=== PATIENT | female | born 1965 | race Caucasian/White ===

== ENCOUNTER 2016-12-02 12:30 | Emergency (ER) | payer SELFPAY ==
[2016-12-02 12:36] VITALS: BP 144/83
--- NOTE | 2016-12-02 12:51 | EDM.PDOC ---
ED HPI GENERAL MEDICAL PROBLEM - General Chief Complaint: Chest Pain Stated Complaint: CHEST PAIN, SOB Time Seen by Provider: 12/02/16 12:35 Source of Information: Reports: Patient History Limitations: Reports: No Limitations - History of Present Illness INITIAL COMMENTS - FREE TEXT/NARRATIVE: 51-year-old female presents for evaluation treatment of chest pain. Patient reports that the chest pain began around 10 PM last night. She describes as a bandlike sensation across her lower chest. She rates it as a 10 out of 10. She states the pain goes into her back. She reports associated symptoms of shortness of breath, diaphoresis and nausea. Reports she has chronic shortness of breath but feels this is worse than normal. She denies any vomiting, lightheadedness, dizziness, syncope, fevers or cough. No treatments prior to arrival in the ER. Patient's has no cardiac history. She denies any previous MIs, arrhythmias or valve problems. She smokes half pack a day and has done so for "forever ". Denies any hypertension, diabetes or high cholesterol. Patient reports that she was recently ill with a sinus infection like symptoms. She reports facial pain. Denies a cough or fever. Patient also reports that she has a history of diverticulitis. She is reporting abdominal pain and constipation. No diarrhea, no melena, or hematochezia. Previous and surgeries include a hysterectomy with what sounds like takedown of the adhesions. She also had her tubes tied. Reports her hysterectomy was in 2001. Location: Reports: Chest Middle Chest Pain Score (Numeric/FACES): 10 - Related Data Allergies Allergy/AdvReac Type Severity Reaction Status Date / Time Sulfa (Sulfonamide Allergy Hives Verified 12/31/14 21:18 Antibiotics) Home Meds: Home Meds . [No Known Home Meds] 12/02/16 [History] Past Medical History Respiratory History: Reports: SOB Gastrointestinal History: Reports: Chronic Constipation, Diverticulosis, Other ( See Below) Other Gastrointestinal History: esophageal strictures - Past Surgical History GI Surgical History: Reports: Esophageal Dilatation Female Surgical History: Reports: Hysterectomy, Tubal Ligation Social & Family History - Family History Family Medical History: Noncontributory - Tobacco Use Smoking Status *Q: Current Every Day Smoker Years of Tobacco use: 20 - Recreational Drug Use Recreational Drug Use: No ED ROS GENERAL - Review of Systems Review Of Systems: See Below Constitutional: Reports: Diaphoresis. Denies: Fever HEENT: Reports: Sinus Problem. Denies: Ear Pain, Throat Pain Respiratory: Reports: Shortness of Breath (chronic but worse than normal). Denies: Cough Cardiovascular: Reports: Chest Pain. Denies: Edema, Lightheadedness GI/Abdominal: Reports: Abdominal Pain, Constipation, Nausea. Denies: Diarrhea, Hematochezia, Melena Musculoskeletal: Reports: Back Pain Neurological: Denies: Dizziness, Syncope ED EXAM, GENERAL - Physical Exam Exam: See Below Exam Limited By: No Limitations General Appearance: Alert, WD/WN, No Apparent Distress Eye Exam: Bilateral Eye: Normal Inspection Ears: Normal External Exam Nose: Normal Inspection Throat/Mouth: Normal Inspection, Normal Lips, Normal Oropharynx, Normal Voice, No Airway Compromise Respiratory/Chest: No Respiratory Distress, Lungs Clear, Normal Breath Sounds Cardiovascular: Normal Peripheral Pulses, Regular Rate, Rhythm, No Murmur Peripheral Pulses: 2+: Radial (L), Radial (R), Posterior Tibial (L), Posterior Tibial (R), Dorsalis Pedis (L), Dorsalis Pedis (R) GI/Abdominal: Normal Bowel Sounds, Soft, Tender (epigastric tenderness) Neurological: Alert, Oriented, Normal Cognition Psychiatric: Normal Affect, Normal Mood Skin Exam: Warm, Dry, Normal Color EKG INTERPRETATION EKG Date: 12/02/16 Time: 13:30 Rhythm: NSR Rate (Beats/Min): 84 [place]: Normal P-Wave: Present QRS: Normal ST-T: Normal QT: Normal EKG Interpretation Comments: NSR at [address]/T wave changes. Reviewed by myself and Dr. Cain. Course - Vital Signs Last Recorded V/S: Last Vital Signs Temp 36.2 C 12/02/16 16:05 Pulse 64 12/02/16 16:05 Resp 15 12/02/16 16:05 BP 144/83 H 12/02/16 12:33 Pulse Ox 99 12/02/16 16:05 - Orders/Labs/Meds Orders: Active Orders 24 hr Category Date Time Status Cardiac Monitoring [RC] . DIRECTED Care 12/02/16 12:54 Active EKG Documentation Completion [RC] STAT Care 12/02/16 12:54 Active Peripheral IV Care [RC] . DIRECTED Care 07/16/17 12:55 Active Peripheral IV Insertion Adult [OM.PC] Routine Oth 12/02/16 12:54 Ordered Labs: Laboratory Tests 12/02/16 12/02/16 12/02/16 Range/Units 12:50 12:50 12:50 WBC 8.67 (3.98-10.04) K/mm3 RBC 5.15 (3.98-5.22) M/mm3 Hgb 15.4 (11.2-15.7) gm/L Hct 45.3 H (34.1-44.9) % MCV 88.0 (79.4-94.8) fl MCH 29.9 (25.6-32.2) pg MCHC 34.0 (32.2-35.5) g/dl RDW Std Deviation 40.5 (36.4-46.3) fL Plt Count 347 (182-369) K/mm3 MPV 9.2 L (9.4-12.3) fl Neut % (Auto) 61.8 (34.0-71.1) % Lymph % (Auto) 28.0 (19.3-51.7) % Hend[place] % (Auto) 6.9 (4.7-12.5) % Eos % (Auto) 2.7 (0.7-5.8) Baso % (Auto) 0.5 (0.1-1.2) % Neut # (Auto) 5.36 (1.56-6.13) K/mm3 Lymph # (Auto) 2.43 (1.18-3.74) K/mm3 [place] # (Auto) 0.60 H (0.24-0.36) K/mm3 Eos # (Auto) 0.23 (0.04-0.36) K/mm3 Baso # (Auto) 0.04 (0.01-0.08) K/mm3 PT 10.3 (8.0-13.0) SECONDS INR 0.95 APTT 28 (22-36) SECONDS D-Dimer, Quantitative 0.71 H (0.19-0.59) mg/L Sodium 136 (136-145) mEq/L Potassium 4.1 (3.5-5.1) mEq/L Chloride 102 (98-107) mEq/L Carbon Dioxide 25 (21-32) mEq/L Anion Gap 13.1 (5-15) BUN 16 (7-18) mg/dL Creatinine 1.3 H (0.55-1.02) mg/dL Est Cr Clr Drug Dosing TNP Estimated GFR (MDRD) 43 (>60) mL/min BUN/Creatinine Ratio 12.3 L (14-18) Glucose 103 (74-106) mg/dL Calcium 9.2 (8.5-10.1) mg/dL Total Bilirubin 0.3 (0.2-1.0) mg/dL AST 14 L (15-37) U/L ALT 21 (14-59) U/L Alkaline Phosphatase 78 (46-116) U/L CK-MB (CK-2) 0.6 (0-3.6) ng/ml Troponin I < 0.017 (0.00-0.056) ng/mL Total Protein 8.0 (6.4-8.2) g/dl Albumin 4.1 (3.4-5.0) g/dl Globulin 3.9 gm/dL Albumin/Globulin Ratio 1.1 (1-2) Lipase 162 (73-393) U/L Meds: Medications Discontinued Medications Generic Name Dose Route Start Last Admin Trade Name Freq PRN Reason Stop Dose Admin Hydromorphone HCl 1 mg 12/02/16 12:54 12/02/16 13:07 Dilaudid IVPUSH 12/02/16 12:55 1 mg ONETIME ONE Administration Sodium Chloride 100 mls @ 65 mls/hr 12/02/16 14:15 12/02/16 14:37 Normal Saline IV 65 mls/hr ASDIRECTED MANNIE Administration Iopamidol 100 ml 12/02/16 14:12 12/02/16 14:37 Isovue-370 (76%) IVPUSH 12/02/16 14:13 100 ml ONETIME ONE Administration Sodium Chloride 10 ml 12/02/16 12:54 12/02/16 13:08 Saline Flush FLUSH 10 ml ASDIRECTED PRN Administration Keep Vein Open Sodium Chloride 10 ml 12/02/16 14:12 12/02/16 14:37 Saline Flush FLUSH 10 ml ONETIME PRN Administration IV FLUSH - Radiology Interpretation Free Text/Narrative:: chest xray shows no acute intrathoracic process. CT angiogram impression per Dr. Holley: 1. No Findings of pulmonary embolism. 2. Small subpleural nodule within the right upper lung. Noncontrast chest CT recommended in one year to confirm stability. 3. Diffusely dilated esophagus with diffuse wall thickening. Fluid is seen throughout the esophagus. In addition there is a fair amount of fluid and food contents within the stomach. Distal portions of the stomach are not seen and difficult to exclude gastric outlet obstruction. Please correlate with patient' s symptoms. 4. Emphysematous change. CT Results Date: 12/02/16 - Re-Assessments/Exams Free Text/Narrative Re-Assessment/Exam: 12/02/16 13:50 labs returned wbc is 8.62, hgb is 15.4 and plts are 347 sodium is 136, potassium is 4.1 and chloride is 102. anion gap is 13.1 creatinine is 1.3 gluclose is 103 d dimer is elevated at 0.71 pt is 10.3 and inr is 0.95 ptt is 28 trop is <0.017 ckmb is 0.6 lipase is 162 I reviewed the labs, chest xray and ekg with the patient. CT pulmonary angiogram ordered to rule out PE. Patient reports pain has resolved and she is resting comfortably. 12/02/16 15:[address] results with the patient. I recommend she have an endoscopy shows she is able to. She states that she is moving to [place] in 2 weeks. She would like to establish with family medicine and a surgeon in [place]. I offered to contact the surgeon sporting goods salesperson and see if she could be seen this week prior to going. She states she does not have insurance and would like to establish care in [place]. She reports she has had her esophagus dilated twice before last time was about 15 years ago. Departure - Departure Time of Disposition: 15:47 Disposition: Home, Self-Care 01 Condition: Fair Clinical Impression: Lung nodule, Esophageal stricture Instructions: Esophageal Stricture Referrals: PCP,None [Primary Care Provider] - Forms: ED Department Discharge Additional Instructions: You were given medication in the ER that can affect your ability to drive and operate machinery. Please do not drive or operate machinery within 12 hours of taking prescription narcotic pain medication. [id number] Tylenol or Motrin as needed for pain. make sure you take small bites and chew your food thoroughly to prevent an impacted food bolus as you are at risk of having something like this with the esophageal stricture. Follow-up with a surgeon as soon as you're able to. you will need an EGD to further evaluate your esophageal abnormalities. Please establish with a primary care provider as soon as you are able to. Have a CT of you chest done within one year to evaluate the lung nodule in the right upper lung. Please return to the ER if your symptoms change or worsen. - My Orders Last 24 Hours: My Active Orders 12/02/16 12:54 Cardiac Monitoring [RC] . DIRECTED EKG Documentation Completion [RC] STAT Peripheral IV Insertion Adult [OM.PC] Routine 12/02/16 12:55 Peripheral IV Care [RC] . DIRECTED - Assessment/Plan Last 24 Hours: My Active Orders 12/02/16 12:54 Cardiac Monitoring [RC] . DIRECTED EKG Documentation Completion [RC] STAT Peripheral IV Insertion Adult [OM.PC] Routine 12/02/16 12:55 Peripheral IV Care [RC] . DIRECTED
[2016-12-02] MEDS ORDERED: Sodium Chloride 0.9% 10 ML Syringe FLUSH PRN ×2 (12:54→14:12)
[2016-12-02] MEDS ORDERED: HYDROmorphone 1 MG/ML Syringe IVPUSH ONE (12:54)
[2016-12-02] MEDS ORDERED: Iopamidol 755 Mg/ML 100 ML Bottle IVPUSH ONE (14:12)
[2016-12-02] MEDS ORDERED: Sodium Chloride 0.9% 100 ML IV SCH (14:15)
--- NOTE | 2016-12-02 14:21 | CR ---
Chest: Portable view of the chest was obtained. Comparison: No previous study. Heart size and mediastinum are within normal limits. Slight scarring is noted within both upper lungs. Lungs otherwise are clear. Bony structures are grossly intact. Impression: 1. Mild upper lobe scarring. 2. Nothing acute is appreciated on portable chest x-ray. Diagnostic code #2
--- NOTE | 2016-12-02 15:06 | CT ---
CT chest Technique: Multiple axial sections through the chest were obtained. Intravenous contrast was utilized. Study has been performed as a pulmonary angiogram protocol. Comparison: No previous chest CT, previous chest x-ray performed earlier on the same day (12:53 PM). Findings: Pulmonary arteries are well-opacified. No filling defects are seen to indicate pulmonary embolism. Mediastinum and hilar regions show no adenopathy or mass. No axillary adenopathy is seen. Large amount of fluid and food debris is seen within the stomach. Esophagus is dilated and contains fluid compatible with severe and chronic gastroesophageal reflux. Diffuse wall thickening is seen throughout the esophagus. Diffuse bullous change is noted within both upper lungs. Other emphysematous changes are scattered throughout the chest. Slight dependent atelectasis is seen posteriorly within both lung bases. Small subpleural nodule is noted within the right upper chest measuring 1.1 mm. Lungs otherwise are clear. Impression: 1. No findings of pulmonary embolism. 2. Small subpleural nodule within the right upper lung. Noncontrast chest CT recommended in one year to confirm stability. 3. Diffusely dilated esophagus with diffuse wall thickening. Fluid is seen throughout the esophagus. In addition there is a fair amount of fluid and food contents within the stomach. Distal portions of the stomach not seen and difficult to exclude gastric outlet obstruction. Please correlate with the patient's symptoms. 4. Emphysematous change. Diagnostic code #3
== END 2016-12-02 16:05 | disposition home or self-care (01) ==
LOC: JD.ED 12:30
DX: K22.2 Esophageal obstruction (principal); R91.1 Solitary pulmonary nodule; F17.210 Nicotine dependence, cigarettes, uncomplicated; Z88.2 Allergy status to sulfonamides; Z90.710 Acquired absence of both cervix and uterus
CPT/HCPCS: 36415; 71010; 71275; 80053; 82553; 83690; 84484; 85025; 85379; 85610; 85730; 93005; 96374; 99285; J1170; J7030; J7050; Q9967; 99284